=== PATIENT | female | born 1975 | race Caucasian/White ===

== ENCOUNTER 2022-07-27 18:04 | Emergency (ER) | payer MEDICAID ==
[2022-07-27 18:07] VITALS: BP 165/83; PULSE 68
[2022-07-27 19:00] LABS: CHLORIDE,CL 104 mEq/L (98-106); ESTIMATED GFR 79 mL/min (>=60); SODIUM,NA 140 mEq/L (136-145)
== END 2022-07-27 19:19 | disposition home or self-care (01) ==
LOC: CC.ED 18:04
DX: I82.401 Acute embolism and thrombosis of unspecified deep veins of right lower extremity (principal); Z79.01 Long term (current) use of anticoagulants
CPT/HCPCS: 36415; 80053; 81001; 84484; 85025; 86140; 93005; 93010; 99284